=== PATIENT | male | born 1960 | race Caucasian/White ===

== ENCOUNTER 2019-01-05 10:32 | Observation (INO) ==
[2019-01-05] MEDS ORDERED: Metoprolol Tartrate 25 MG Tablet PO ONE (10:54)
[2019-01-05] MEDS ORDERED: Chlorhexidine Gluconate 2% 1 Pack (2 Cloths) TOPICAL ONE (10:54)
[2019-01-05] MEDS ORDERED: Vancomycin Inj 1,000 MG in Sodium Chlor 0.9% Inj 250 ML IV.SIG SCH (11:00)
[2019-01-05] MEDS ORDERED: Sodium Chlor 0.9% Inj 500 ML IV.SIG SCH (11:00)
[2019-01-05] MEDS ORDERED: Chlorhexidine 4% Topical 120 APPLIC/120 ML Bottle TOPICAL SCH (11:00)
[2019-01-05] MEDS ORDERED: ceFAZolin 2 GM Premix Inj 2 GM/50 ML PIGGYBACK IV.SIG SCH (11:00)
[2019-01-05] MEDS ORDERED: Ketamine Inj 50 MG/5 ML Syringe IV.PUSH ONE (12:35)
[2019-01-05] MEDS ORDERED: Propofol Inj 500 MG/50 ML Vial ONE (12:35)
[2019-01-05] MEDS ORDERED: Thrombin Topical Soln 5,000 UNIT Vial TOPICAL ONE (12:51)
[2019-01-05] MEDS ORDERED: Gelatin Size 100 Topical Foam ONE (12:51)
[2019-01-05] MEDS ORDERED: Bupivacaine/Epinephrine PF Inj 0.5% 10 ML Vial ONE (12:51)
[2019-01-05] MEDS ORDERED: Esmolol Bolus Inj 100 MG/10 ML Vial IV.PUSH ONE (13:30)
[2019-01-05] MEDS ORDERED: Glycopyrrolate Inj 1 MG/5 ML Syringe IV.PUSH ONE (13:30)
[2019-01-05] MEDS ORDERED: Normosol-R pH 7.4 Inj 2,000 ML IV.CONT ONE (13:30)
[2019-01-05] MEDS ORDERED: Neostigmine Inj 5 MG/5 ML Syringe IV.PUSH ONE (13:30)
[2019-01-05] MEDS ORDERED: Sodium Chlor 0.9% Inj 500 ML IV.CONT ONE ×2 (13:30)
[2019-01-05] MEDS ORDERED: Phenylephrine/NS 1000 MCG/10ML Syringe IV.PUSH ONE (13:30)
[2019-01-05] MEDS ORDERED: Lidocaine PF 1% Inj 5 ML Syringe OTHER ONE (13:30)
[2019-01-05 14:05] LABS: Baso % (Auto) 0.7 % (0.0-2.0); Eos # (Auto) 0.2 th/mm3 (0.0-0.4); Eos % (Auto) 2.3 % (0.0-4.0); Hematocrit 50.3 % (39.0-51.0); Lymph # (Auto) 1.4 th/mm3 (1.0-4.8); Lymph % (Auto) 22.1 % (9.0-44.0); Mean Corpuscular HGB Conc 33.8 % (32.0-36.0); Mean Corpuscular Volume 94.7 fL (80.0-100.0); Mono # (Auto) 0.6 th/mm3 (0.0-0.9); Mono % (Auto) 8.5 % (0.0-8.0); Neut # (Auto) 4.3 th/mm3 (1.8-7.7); Neut % (Auto) 66.4 % (16.0-70.0); Platelet Count 152 th/mm3 (150-450); Red Blood Count 5.31 mil/mm3 (4.50-5.90); Red Cell Distribution Width 14.9 % (11.6-17.2); White Blood Count 6.5 th/mm3 (4.0-11.0)
[2019-01-05 14:14] LABS: Alanine Aminotransferase 34 U/L (12-78); Albumin 4.1 g/dL (3.4-5.0); Anion Gap 7 meq/L (5-15); Aspartate Aminotransferase 19 U/L (15-37); Blood Urea Nitrogen 18 mg/dL (7-18); Calcium 9.2 mg/dL (8.5-10.1); Carbon Dioxide 27.9 meq/L (21.0-32.0); Chloride 104 meq/L (98-107); Glomerular Filtration Rate 49 mL/min (>89); Glucose,Random 94 mg/dL (74-106); Potassium 3.6 meq/L (3.5-5.1); Sodium 139 meq/L (136-145)
[2019-01-05 14:16] LABS: Alkaline Phosphatase 54 U/L (45-117); Total Protein 7.9 g/dL (6.4-8.2)
[2019-01-05] MEDS ORDERED: Clindamycin Inj 900 MG/6 ML Vial ONE (14:24)
[2019-01-05] MEDS ORDERED: Aluminum/Magnesium/Simethacone Susp 30 ML UDC PO PRN (16:19)
[2019-01-05] MEDS ORDERED: Menthol 5.8 MG Lozenge BUCCAL PRN (16:19)
[2019-01-05] MEDS ORDERED: Morphine Sulfate Inj 2 MG/ML Vial IV.PUSH PRN (16:19)
[2019-01-05] MEDS ORDERED: Acetaminophen 325 MG Tablet PO PRN (16:19)
[2019-01-05] MEDS ORDERED: Bisacodyl 10 MG Supp RECTAL PRN (16:19)
[2019-01-05] MEDS ORDERED: Zolpidem Tartrate 5 MG Tablet PO PRN (16:19)
--- NOTE | 2019-01-05 16:30 | P.OP ---
- Preoperative Diagnosis (1) Cervical spondylosis with myelopathy and radiculopathy (2) Cervical cord compression with myelopathy Date of procedure: 01/05/19 Procedure: Anterior cervical C3 and C4 partial corpectomies with microdiscectomy; C3-4 interbody autograft fusion; anterior C3-4 cervical plate placement; C3-4 interbody cage placement; microsurgical technique Anesthesia: JONATHAN Surgeon: Jered Coyne MD Marketing Operations Specialist: Linda Tovar Estimated blood loss (mL): 25 Pathology: none sent Operation and Findings: Following administration of general endotracheal anesthesia with the neck immobilized in a Gaastra collar, the patient received a gram of vancomycin and Decadron 10 mg intravenously. Sequential compression devices were placed in supine position on a Nadeem table and all pressure points adequately padded. The head secured in a donut and anterior cervical region then shaved and prepped with Chloraprep and sterilely draped with Ioban along with the usual sterile draping. A transverse skin incision on the left side of the neck was then made after infiltrating the skin with 0.5% Marcaine with epinephrine solution extending down through the platysma. At the anterior border of the sternocleidomastoid further dissection was undertaken developing a plane between the carotid sheath laterally and the trachea esophagus medially. The prevertebral fascia was exposed and dissected out. The medial attachments of the longus colli muscles were detached and a self-retaining retractor used for exposure. The C3-4 disc space was localized with a marking the disc space and using lateral fluoroscopy. Salisbury distraction screws 14 mm length were placed one in the C3 and one in the C4 body for interbody distraction and exposure. There was disc degeneration and anterior osteophytes noted at the C3-4 level and the osteophytes were resected with a Leksell and annulus incised with a 15 blade and further dissection undertaken using microtechnique with microscope magnification. Diskectomy was undertaken with pituitaries and the endplates were also decorticated with curettes and drill bit. And more posteriorly there was disk osteophyte complex compressing the thecal sac along with a significant uncovertebral joint hypertrophy with foraminal stenosis which was decompressed along with removal of the posterior longitudinal ligaments at both levels. In order to decompress the spinal cord compression, partial corpectomies with removal of the inferior portion of the C3 vertebral body and superior portion of C4 vertebral body had to be undertaken. The foramen was decompressed bilaterally using a Kerrison's and palpation with a nerve hook, the exiting nerve roots were felt to be free. The area was then copiously irrigated. I then placed a Peek cage packed with local autograft bone at the C3-4 interspace under fluoroscopy guidance. Salisbury distraction pins were removed and the holes plugged with Gelfoam for hemostasis. In order to facilitate the fusion and provide stabilization, a Precision spine cervical Uniplate was then placed with a 16 mm variable angle screw in the C3 body and 16 mm fixed angle screw in the C4 body. The plate screw locking mechanism was then engaged. AP and lateral fluoroscopy confirmed good placement of the construct and the retractor was then removed. Muscular bleeding points were cauterized with bipolar cautery and Gelfoam was then also used for hemostasis which was removed. The platysma was then approximated using 3-0 Vicryl interrupted stitches and 3-0 Vicryl subcuticular stitch also placed in an interrupted fashion, and final skin closure was with Mastisol and Steri- Strips. Sterile dressing was then applied. The patient was then extubated and taken to the recovery room. There are no intraoperative complications and all sponge and needle counts were correct at the end of procedure. Estimated blood loss was about 25 cc. The patient did undergo intraoperative neurologic monitoring which remained stable throughout the surgery.
[2019-01-05] MEDS ORDERED: fentaNYL Citrate Inj 100 MCG/2 ML Ampul ONE (16:55)
--- NOTE | 2019-01-05 17:17 | XR ---
EXAM DATE: 01/05/2019 5:12 PM EST AGE/SEX: 58 years / Male INDICATIONS: c-c4 fusion. CLINICAL DATA: This is the patient's initial encounter. Patient reports that signs and symptoms have been present for 1 day and indicates a pain score of Nonresponsive. MEDICAL/SURGICAL HISTORY: Non-responsive. Non-responsive. COMPARISON: No prior exams available for comparison. FINDINGS: Patient is status post fusion of the cervical spine. There is good alignment of the cervical spine an d fusion. The fusion appears to be at the level of C3-C4. CONCLUSION: There is good alignment on this postoperative study. Electronically signed by: Marc Adame MD Board Certified Radiologist 01/05/2019 5:16 PM EST
[2019-01-05] MEDS ORDERED: Dimethicone/Oxybenzone-Padimate Lip Balm 4.25 GM Tube TOPICAL ONE (17:26)
[2019-01-05] MEDS ORDERED: Labetalol HCl Inj 20 MG/4 ML Vial ONE (17:33)
[2019-01-05] MEDS ORDERED: Montelukast 10 MG Tablet PO SCH (18:00)
[2019-01-05] MEDS: Senna/Docusate Sodium 8.6/50 MG Tablet PO SCH (20:34)
[2019-01-05] MEDS: Metoprolol Tartrate 25 MG Tablet PO SCH (21:16)
[2019-01-06 07:42] VITALS: BP 114/77; PULSE 72; TEMP 98.1; O2SAT 94
[2019-01-06] MEDS: Metoprolol Tartrate 25 MG Tablet PO SCH (08:15)
[2019-01-06] MEDS: Senna/Docusate Sodium 8.6/50 MG Tablet PO SCH (08:29)
[2019-01-06] MEDS ORDERED: hydroCHLOROthiazide 25 MG Tablet PO SCH (09:00)
[2019-01-06 09:36] VITALS: RESP 16
--- NOTE | 2019-01-06 09:54 | P.PNNS ---
Subjective Interval history: 58-year-old gentleman postop day #1 status post anterior C5-6 microdiscectomy with partial corpectomies and fusion for severe cervical myelopathy with spinal cord compression. He relates no pain with resolution of his scapular and deltoid area discomfort. He is tolerating a regular diet without any hoarseness and ambulating independently and voiding well. Physical Exam Vital signs: Vital Signs 01/05/19 11:27 01/05/19 16:25 01/05/19 16:30 Temperature 98.1 F 97.4 F L Pulse Rate 99 H 105 H 99 H Respiratory Rate 18 16 16 Blood Pressure 144/96 H 131/91 H 126/87 Pulse Oximetry 99 99 100 01/05/19 16:45 01/05/19 17:00 01/05/19 17:15 Temperature Pulse Rate 103 H 95 H 84 Respiratory Rate 20 18 18 Blood Pressure 136/106 H 137/115 H 145/103 H Pulse Oximetry 99 99 100 01/05/19 17:30 01/05/19 17:40 01/05/19 20:00 Temperature 97.4 F L Pulse Rate 93 H 84 102 H Respiratory Rate 22 20 21 Blood Pressure 166/115 H 146/90 H 135/94 H Pulse Oximetry 98 99 98 01/05/19 20:14 01/06/19 00:40 01/06/19 03:25 Temperature 97.4 F L 97.5 F L Pulse Rate 102 H 80 Respiratory Rate 21 20 18 Blood Pressure 135/94 H 119/75 Pulse Oximetry 98 98 01/06/19 04:25 01/06/19 07:41 01/06/19 08:00 Temperature 97.5 F L 98.1 F Pulse Rate 85 72 Respiratory Rate 21 20 16 Blood Pressure 144/90 H 114/77 Pulse Oximetry 99 94 L Intake & Output 01/05/19 01/06/19 01/06/19 18:59 06:59 18:59 Intake Total 1999 1208 / 1208 104 / 104 Balance 1999 1208 / 1208 104 / 104 Weight 137.5 kg 137.5 kg Intake: IV 120 / 1208 104 / 104 NS + KCl 20 mEq Inj 1,000 ML @ 1000 / 1000 100 mls/hr IV.CONT .Q10H [facility] Rx #:[id number] Cleocin Inj 600 MG In NS Inj 208 / 208 104 / 104 100 ML @ 208 mls/hr IV.SIG Q6H [facility] Rx#:[id number] Anesthesia Amount 1999 Other: # Voids 4 Weight On Admission 137.5 kg - Constitutional no acute distress - Routine HEENT Exam Head: Present: normocephalic, atraumatic Eye: Present: EOMI, PERRL ENT: Present: oropharynx clear - Routine Neck Exam Present: supple, full ROM, trachea midline - Routine Respiratory Exam Present: CTA bilaterally - Routine Cardiovascular Exam Present: RRR, S1, S2 - Routine Abdominal Exam Present: soft, normoactive bowel sounds - Routine Extremities Exam Present: full ROM - Routine Skin Exam Present: intact, wounds (Anterior cervical incision site Steri-Strips in place with no swelling, edema or drainage) - Routine Neurological Exam Present: oriented X3, CN II-XII intact, moving all extremities, normal speech Assessment and Plan - Assessment (1) Cervical spondylosis with myelopathy and radiculopathy Code(s): M47.12 - Other spondylosis with myelopathy, cervical region; M47.22 - Other spondylosis with radiculopathy, cervical region Status: Chronic (2) Cervical cord compression with myelopathy Code(s): G95.20 - Unspecified cord compression Status: Chronic - Plan 58-year-old gentleman status post C3-4 ACDF without any complication and doing very well postoperatively. Discussed activity restrictions and wound care with patient and family at bedside. Discharge home and follow-up in office as scheduled.
--- NOTE | 2019-01-13 14:56 | P.HPNS ---
History of Present Illness Service: Date of admission 01/05/2019 neurosurgery Primary Care Physician: Enrique Campos MD History of Present Illness: 58-year-old gentleman with a chronic history of multilevel cervical spondylosis with neck pain and radiation to the scapular area and shoulders. He is found to have spinal cord compression from disc osteophyte complex at multiple levels but most prominent at the C3-4 where he also has intrinsic myelomalacia. He sought multiple opinions from spine surgeons who have recommended cervical spine surgery. He is also cleared by his administrative assistant data entry for surgical intervention. - Diagnosis (1) Cervical spondylosis with myelopathy and radiculopathy (2) Cervical cord compression with myelopathy PMFSH - History History Provided By: Patient - Medical History Medical History: Medical History (Last Reviewed 01/13/19 @ 14:52 by Jered Coyne MD) Afib CPAP (continuous positive airway pressure) dependence Hypertension Sleep apnea - Surgical History Surgical History: Surgical History (Last Reviewed 01/13/19 @ 14:52 by Jered Coyne MD) No history of previous surgery - Tobacco History Second Hand Smoke Exposure: No Smoking Status: Never smoker - Alcohol History How Often Do You Have a Drink Containing Alcohol: 2 to 3 times a week - Substance Use History Substance History: No History of Abuse - Travel History Recent Travel in the [place] Within the Last 8 Weeks: No Recent Travel Out of the Country Within the Last 8 Weeks: No Medications and Allergies Allergies Allergy/AdvReac Type Severity Reaction Status Date / Time Penicillins Allergy Unknown unknown Verified 01/05/19 11:24 Home Medications Medication Instructions Recorded Confirmed Type aspirin 81 mg PO DAILY 12/29/18 01/05/19 History hydrochlorothiazide 25 mg PO DAILY 12/29/18 01/05/19 History metoprolol tartrate 25 mg PO BID 12/29/18 01/05/19 History montelukast [Singulair] 10 mg PO QPM 12/29/18 01/05/19 History Exam - Constitutional no acute distress - Routine HEENT Exam Head: Present: normocephalic, atraumatic Eye: Present: EOMI, PERRL ENT: Present: oropharynx clear - Routine Neck Exam Present: tenderness (Restricted range of motion of the cervical spine due to pain), trachea midline - Routine Respiratory Exam Present: CTA bilaterally - Routine Cardiovascular Exam Present: RRR, S1, S2 - Routine Abdominal Exam Present: soft, normoactive bowel sounds - Routine Extremities Exam Present: full ROM - Routine Skin Exam Present: intact - Routine Neurological Exam Present: oriented X3, CN II-XII intact, moving all extremities, normal speech Results - Laboratory Findings CBC and BMP: 01/05/19 11:30 01/05/19 11:30 Abnormal lab findings: Abnormal Labs 01/05/19 01/05/19 11:30 11:30 [place] % (Auto) 8.5 H Creatinine 1.48 H Estimated GFR 49 L Total Bilirubin 1.1 H Caprini VTE Risk Assessment Caprini Risk Assessment Model: Point Value = 1 Point Value = 2 Point Value = 3 Point Value = 5 Age 41-60 Minor surgery BMI > 25 kg/m2 Swollen legs Varicose veins or History of unexplained or recurrent spontaneous Oral contraceptives or hormone replacement Sepsis (< 1 month) Serious lung disease, including pneumonia (< 1 month) Abnormal pulmonary function Acute myocardial infarction Congestive heart failure (< 1 month) History of inflammatory bowel disease Medical patient at bed rest Age 61-74 Arthroscopic surgery Major open surgery (> 45 min) Laparoscopic surgery (> 45 min) Malignancy Confined to bed (> 72 hours) Immobilizing plaster cast Central venous access Age >= 75 History of VTE Family history of VTE Factor V Leiden Prothrombin [id number] Lupus anticoagulant Anticardiolipin antibodies Elevated serum homocysteine Heparin-induced thrombocytopenia Other congenital or acquired thrombophilia Stroke (< 1 month) Elective arthroplasty Hip, pelvis, or leg fracture Acute spinal cord injury (< 1 month) Prophylaxis Regimen: Total Risk Factor Score Risk Level Prophylaxis Regimen 0-1 Low Early ambulation 2 Moderate Order ONE of the following: *Sequential Compression Device (SCD) *Heparin 5000 units SQ BID 3-4 Higher Order ONE of the following medications: *Heparin 5000 units SQ TID *Enoxaparin/Lovenox 40 mg SQ daily (WT < 150 kg, CrCl > 30 mL/min) *Enoxaparin/Lovenox 30 mg SQ daily (WT < 150 kg, CrCl > 10-29 mL/min) *Enoxaparin/Lovenox 30 mg SQ BID (WT < 150 kg, CrCl > 30 mL/min) AND/OR *Sequential Compression Device (SCD) 5 or more Highest Order ONE of the following medications: *Heparin 5000 units SQ TID (Preferred with Epidurals) *Enoxaparin/Lovenox 40 mg SQ daily (WT < 150 kg, CrCl > 30 mL/min) *Enoxaparin/Lovenox 30 mg SQ daily (WT < 150 kg, CrCl > 10-29 mL/min) *Enoxaparin/Lovenox 30 mg SQ BID (WT < 150 kg, CrCl > 30 mL/min) AND *Sequential Compression Device (SCD) Assessment and Plan - Assessment (1) Cervical spondylosis with myelopathy and radiculopathy Code(s): M47.12 - Other spondylosis with myelopathy, cervical region; M47.22 - Other spondylosis with radiculopathy, cervical region Status: Chronic (2) Cervical cord compression with myelopathy Code(s): G95.20 - Unspecified cord compression Status: Chronic - Plan 58-year-old gentleman with C3-4 spinal stenosis cord compression and myelomalacia. He also has cervical stenosis at multiple other levels but elected on operating at the worst level since he did not want any multilevel anterior posterior cervical spine surgery. The procedure on the risks and benefits involved were discussed at length in multiple locations with the patient and his family. He requested we proceed and informed consent obtained. H&P: Quality - VTE Deep Vein Thrombosis/Pulmonary Embolism Present on Admission: No
== END 2019-01-06 10:04 | disposition home or self-care (01) ==
LOC: N05 10:32 → HSDC 10:32 → EDSTATUS 13:00
PROVIDERS: ADMIT Neurological Surgery; ATTEND Neurological Surgery
DX: Z79.82 Long term (current) use of aspirin; I10 Essential (primary) hypertension; M47.12 Other spondylosis with myelopathy, cervical region; M47.22 Other spondylosis with radiculopathy, cervical region; M25.78 Osteophyte, vertebrae; G47.30 Sleep apnea, unspecified; Z79.899 Other long term (current) drug therapy
CPT/HCPCS: 72040; 76000; 80053; 85025; 94150; 96365; 96366; 96375; C1713; G0378; J0131; J1100; J2250; J2370; J2405; J2704; J2710; J3010; J3370; J3480; J7040; J7050; J7120